=== PATIENT | male | born 1955 | race American Indian/Alaskan Native ===

== ENCOUNTER 2021-02-02 09:59 | Emergency (ER) | payer MEDICARE ==
--- NOTE | 2021-02-02 10:44 | XRay Report ---
CHEST 2 VIEWS INDICATION / CLINICAL INFORMATION: Shortness of breath. COMPARISON: None available. FINDINGS: SUPPORT DEVICES: None. HEART / MEDIASTINUM: No significant abnormality. LUNGS / PLEURA: No significant pulmonary or pleural abnormality. No pneumothorax. ADDITIONAL FINDINGS: No significant additional findings. IMPRESSION: 1. No acute findings. Signer Name: Binh Dorsey MD Signed: 02/02/2021 10:39 AM Workstation Name: [id number]
--- NOTE | 2021-02-02 10:53 | Electrocardiograph Report ---
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
[2021-02-02 11:05] LABS: Basophils # (Auto) 0.1 K/mm3 (0.0-0.1); Basophils % (Auto) 1.4 % (0.0-1.8); Eosinophils # (Auto) 0.6 K/mm3 (0.0-0.4); Eosinophils % (Auto) 6.7 % (0.0-4.3); Hematocrit 32.7 % (35.5-45.6); Hemoglobin 10.4 gm/dl (11.8-15.2); Lymphocytes # (Auto) 1.7 K/mm3 (1.2-5.4); Lymphocytes % (Auto) 19.5 % (13.4-35.0); Mean Corpuscular HGB Conc 32 % (32-34); Mean Corpuscular Volume 76 fl (84-94); Monocytes # (Auto) 0.9 K/mm3 (0.0-0.8); Monocytes % (Auto) 9.6 % (0.0-7.3); Platelet Count 278 K/mm3 (140-440)
[2021-02-02 11:21] LABS: INR 1.01 (0.87-1.13); Partial Thromboplastin Time 30.3 Sec. (24.2-36.6)
[2021-02-02 11:25] LABS: Red Cell Distribution Width 20.7 % (13.2-15.2)
--- NOTE | 2021-02-02 11:32 | Event Note ---
ED Screening Note Date of service: 02/02/21 Time: 11:31 ED Screening Note: 65-year-old male patient with history of COPD presents to the emergency department with complaints of dyspnea on exertion and cough for 3 days. Patient does not use oxygen at home. States his symptoms are consistent with prior COPD exacerbations. Also reports bilateral lower extremity edema. No known history of CHF. General: Awake, appropriately interactive, no acute distress. Neck: Supple. Full range of motion intact. Cardiovascular: Regular rate and rhythm. Bilateral pretibial pitting edema. Pulmonary: No respiratory distress. Diffuse expiratory wheezing bilaterally. Skin: No apparent rashes or lesions. Neurological: No facial asymmetry. Speech is clear. Follows commands. Patient is alert and oriented. Musculoskeletal: Moves all four extremities spontaneously with normal range of motion. Psych: Cooperative. Appropriate mood and affect. Labs/imaging ordered by director of online education prior to MSE. I have greeted and performed a focused rapid initial assessment of this patient. A comprehensive ED assessment and evaluation of the patient, analysis of all test results, and completion of the medical decision-making process will be conducted by additional ED providers. This initial assessment/diagnostic orders/clinical plan/treatment(s) is/are subject to change based on patients health status, clinical progression and re-assessment. Further treatment and workup at subsequent clinical provider's discretion. Patient/guardian urged not to elope from the ED as their condition may be serious if not clinically assessed and managed.
[2021-02-02 11:37] LABS: Alanine Aminotransferase 17 units/L (7-56); Albumin 3.9 g/dL (3.9-5); Blood Urea Nitrogen 11 mg/dL (9-20); Calcium 8.9 mg/dL (8.4-10.2); Hemolysis Index 2
[2021-02-02 11:54] LABS: BUN/Creatinine Ratio 16
[2021-02-02] MEDS ORDERED: ALBUTEROL 2.5 MG/3 ML NEBU IH ONE (12:59)
[2021-02-02] MEDS ORDERED: IPRATROPIUM 0.02% NEBU 2.5 ML IH ONE (12:59)
[2021-02-02] MEDS ORDERED: methylPREDNISolone Sod Succinate 125 MG/2 ML INJ IM ONE (12:59)
--- NOTE | 2021-02-02 13:21 | Emergency Department Report ---
ED Shortness of Breath HPI - General Chief Complaint: Dyspnea/Respdistress Stated Complaint: COUGH Time Seen by Provider: 02/02/21 12:44 Source: patient Mode of arrival: Ambulatory Limitations: No Limitations - History of Present Illness Initial Comments: 65-year-old male, history of COPD, presents to ED with shortness of breath x3 days, worsening last night. Patient states he has been having coughing and wheezing. He denies any fever or chest pain. Patient states he is currently staying at the [facility]. Patient states he has an inhaler and a nebulizer machine, but they are both at home in [place], [place]. Patient is not on home O2. Patient reports bilateral lower extremity swelling that is chronic. States he is on a diuretic for it. He denies any history of CHF. Patient states he feels as if he needs a breathing treatment and steroids. Patient reports he has been fully vaccinated against COVID-19. MD Complaint: shortness of breath -: days(s) (3) Severity: moderate Consistency: intermittent Improves With: rest Worsens With: exertion, coughing Known History Of: COPD Treatments Prior to Arrival: none - Related Data Home Oxygen Therapy: No Previous Rx's Medication Instructions Recorded Last Taken Type Albuterol Sulfate [Proventil Hfa] 2 puff IH Q4HR PRN #1 hfa.[email or web address] 02/02/21 Unknown Rx predniSONE [Deltasone] 50 mg PO QDAY #5 tab 02/02/21 Unknown Rx Allergies Allergy/AdvReac Type Severity Reaction Status Date / Time No Known Allergies Allergy Unverified 02/02/21 10:06 ED Review of Systems ROS: Stated complaint: COUGH Other details as noted in HPI Comment: All other systems reviewed and negative Constitutional: denies: chills, fever Respiratory: cough, shortness of breath, wheezing Cardiovascular: denies: chest pain Musculoskeletal: other (Patient denies any increased lower extremity swelling) ED Past Medical Hx - Past Medical History Previous Medical History?: Yes Hx Hypertension: Yes Hx Diabetes: Yes Hx GERD: Yes Hx Asthma: Yes Hx COPD: Yes - Surgical History Past Surgical History?: No - Social History Smoking Status: Never Smoker - Medications Home Medications: Home Medications Medication Instructions Recorded Confirmed Last Taken Type Albuterol Sulfate [Proventil Hfa] 2 puff IH Q4HR PRN #1 hfa.aer.ad 02/02/21 Unknown Rx predniSONE [Deltasone] 50 mg PO QDAY #5 tab 02/02/21 Unknown Rx ED Physical Exam - General Limitations: No Limitations General appearance: alert, in no apparent distress - Head Head exam: Present: atraumatic, normocephalic - Eye Eye exam: Present: normal appearance - ENT ENT exam: Present: mucous membranes moist - Neck Neck exam: Present: normal inspection - Respiratory Respiratory exam: Present: wheezes. Absent: respiratory distress - Cardiovascular Cardiovascular Exam: Present: regular rate, normal rhythm - GI/Abdominal GI/Abdominal exam: Present: soft. Absent: distended, tenderness - Extremities Exam Extremities exam: Present: other (1+ edema bilateral lower legs). Absent: calf tenderness - Neurological Exam Neurological exam: Present: alert, oriented X3 - Psychiatric Psychiatric exam: Present: normal affect, normal mood - Skin Skin exam: Present: warm, dry, intact, normal color ED Course Vital Signs 02/02/21 02/02/21 02/02/21 10:09 12:49 12:57 Temperature 98.2 F Pulse Rate 69 Pulse Rate [ Anterior Bilateral Throughout] Respiratory 20 19 20 Rate Respiratory Rate [Anterior Bilateral Throughout] Blood Pressure 164/76 O2 Sat by Pulse 95 92 Oximetry 02/02/21 02/02/21 02/02/21 13:01 13:15 13:31 Temperature Pulse Rate 62 64 85 Pulse Rate [ Anterior Bilateral Throughout] Respiratory 13 15 21 Rate Respiratory Rate [Anterior Bilateral Throughout] Blood Pressure 153/74 153/74 153/74 O2 Sat by Pulse 92 89 90 Oximetry 02/02/21 02/02/21 02/02/21 13:40 13:45 14:01 Temperature Pulse Rate 75 71 Pulse Rate [ 93 H Anterior Bilateral Throughout] Respiratory 18 15 Rate Respiratory 26 H Rate [Anterior Bilateral Throughout] Blood Pressure 153/74 153/74 O2 Sat by Pulse 92 94 Oximetry 02/02/21 14:15 Temperature Pulse Rate 73 Pulse Rate [ Anterior Bilateral Throughout] Respiratory 18 Rate Respiratory Rate [Anterior Bilateral Throughout] Blood Pressure 153/74 O2 Sat by Pulse 89 Oximetry ED Medical Decision Making - Lab Data Result diagrams: 02/02/21 10:49 02/02/21 10:49 - EKG Data -: EKG Interpreted by Ct EKG shows normal: sinus rhythm, axis, intervals, QRS complexes, ST-T waves Rate: normal - EKG Data Interpretation: no acute changes - Radiology Data Radiology results: report reviewed, image reviewed - Medical Decision Making 65-year-old male presents to ED with COPD exacerbation. Chest x-ray is normal. Albuterol/Atrovent nebulizer treatment along with Solu-Medrol given. Patient feeling much better at this time. Patient feels okay for discharge home with prescriptions. Outpatient follow-up advised, return precautions given. - Differential Diagnosis COPD, pneumonia, CHF Critical care attestation.: If time is entered above; I have spent that time in minutes in the direct care of this critically ill patient, excluding procedure time. ED Disposition Clinical Impression: COPD with acute exacerbation Disposition: TO HOME OR SELFCARE Is pt being admited?: No Condition: Stable Instructions: Chronic Obstructive Pulmonary Disease Exacerbation, [id number], Chronic Obstructive Pulmonary Disease (ED) Prescriptions: predniSONE [Deltasone] 50 mg PO QDAY #5 tab Albuterol Sulfate [Proventil Hfa] 2 puff IH Q4HR PRN #1 hfa.aer.ad PRN Reason: Wheezing Referrals: [facility] [Other] - 3-5 Days [facility] [Provider Group] - 3-5 Days Time of Disposition: 14:57
[2021-02-02 15:14] VITALS: BP 162/78
== END 2021-02-02 15:16 | disposition home or self-care (01) ==
LOC: ED 09:59
DX: J44.1 Chronic obstructive pulmonary disease with (acute) exacerbation (principal); I10 Essential (primary) hypertension; E11.9 Type 2 diabetes mellitus without complications; K21.9 Gastro-esophageal reflux disease without esophagitis; Z79.899 Other long term (current) drug therapy
CPT/HCPCS: 36415; 71046; 80053; 83880; 84484; 85025; 85379; 85610; 85730; 93005; 94640; 96372; 99284; J2930; 94644